=== PATIENT | male | born 1975 | race African-American/Black ===

== ENCOUNTER 2019-05-19 07:56 | Day surgery (SDC) | payer OTHER ==
[2019-05-19] MEDS ORDERED: ROCURONIUM 50 MG/5 ML VIAL IV ONE ×2 (08:00→09:52)
[2019-05-19] MEDS ORDERED: FENTANYL CITR 250 MCG/5 ML ONE ×2 (08:00→09:53)
[2019-05-19] MEDS ORDERED: MIDAZOLAM HCL 2 MG/2 ML INJ ONE (08:00)
[2019-05-19] MEDS ORDERED: LIDOCAINE 1% MPF 5 ML VIAL ONE (08:00)
[2019-05-19] MEDS ORDERED: PROPOFOL 200 MG/20 ML VIAL IV ONE (08:00)
--- OUTSIDE RECORDS SUMMARY | 2019-05-19 08:01 | XMS REPORT | Summary of Care ---
:06/17/1968 Author Organization [facility] Urology [facility] Address [address], [address] [place] [address] Encounter HQ Encntr_alias(FIN) [id number] Date(s): 12/20/18 - 12/20/18 [facility]rology [facility] [address] [place] [address]- [phone] Attending Physician: Sebastian Ruffin MD Referring Physician: Sebastian Ruffin MD Vital Signs No data available for this section Problem List Condition Effective Dates Status Health Status Informant Morbid obesity(Confirmed) Active Allergies, Adverse Reactions, Alerts Substance Reaction Severity Status NKDA Active Medications No data available for this section Results No data available for this section Immunizations No data available for this section Procedures No data available for this section Social History Social History Type Response Smoking Status Never smoker; Type: Cigarettes; Ready to change: No; Concerns about tobacco use in household: No; Exposure to Tobacco Smoke None; Cigarette Smoking Last 365 Days No; Reg Smoking Cessation Counseling No entered on: 10/29/18 Assessment and Plan No data available for this section
--- OUTSIDE RECORDS SUMMARY | 2019-05-19 08:01 | XMS REPORT | Clinical Summary ---
:06/17/1968 Author Organization [facility] Address [address] [place] [address] Care Team Providers Name Role Phone Landon Herr MD Primary Care Provider Allergies Not on File Medications No known medications Active Problems No known active problems Encounters Date Type Specialty Care Team Description 07/28/2018 Lab Lab Landon Herr Occupational exposure to [place] unspecified risk factor 07/28/2018 Employee Health Employee Health Occupational exposure to unspecified risk factor (Primary Dx) after 05/18/2018 Social History Tobacco Use Types Packs/Day Years Used Date Never Assessed Sex Assigned at Date Recorded Not on file Job Start Date Occupation Industry Not on file Not on file Not on file Travel History Travel Start Travel End No recent travel history available. Last Filed Vital Signs Not on file Plan of Treatment Health Maintenance Due Date Last Done Comments INFLUENZA VACCINE 04/14/2019 Procedures Procedure Name Priority Date/Time Associated Diagnosis Comments VARICELLA ZOSTER Routine 07/28/2018 9:43 Results for this VIRUS AB, IGG AM [employer] procedure are in the results section. HEPATITIS B SURFACE Routine 07/28/2018 9:43 Occupational exposure Results for this ANTIBODY [employer] to unspecified risk procedure are in factor the results section. RUBELLA AB IGG Routine 07/28/2018 9:43 Occupational exposure Results for this AM [employer] to unspecified risk procedure are in factor the results section. MUMPS VIRUS Routine 07/28/2018 9:43 Occupational exposure Results for this ANTIBODY, IGG AM [employer] to unspecified risk procedure are in factor the results section. MEASLES (RUBEOLA) Routine 07/28/2018 9:43 Occupational exposure Results for this ANTIBODY IGG AM [employer] to unspecified risk procedure are in factor the results section. after 05/18/2018 Results Measles (rubeola) antibody IgG (07/28/2018 9:43 AM [employer]) Measles (rubeola) NegativeComment: Negative [facility] Ab, IgG Negative: No IgG HOSPITAL antibodies to Measles (Rubeola) detected. Specimen Serum Performing Organization Address City/State/Zipcode Phone Number [facility] DEPARTMENT OF PATHOLOGY AND [address] [place] [phone] Rubella Ab IgG (07/28/2018 9:43 AM [employer]MS BU[employer]DER) Pathologist [facility] Rubella IgG Positive Negative [facility] antibody Comment: HOSPITAL IgG antibody levels are at a level that are considered to indicate positive immunity Specimen Serum Performing Organization Address City/[facility]/Zipcode Phone Number [facility] DEPARTMENT OF PATHOLOGY AND [address] [place] [address] Hepatitis B surface antibody (07/28/2018 9:43 AM FORMS BU[employer]DER) [facility] Hepatitis B surface Reactive (A) Non-reactive [facility] Specimen Blood Performing Organization Address City/[facility]/Zipcode Phone Number [facility] DEPARTMENT OF PATHOLOGY AND [address] [place] [phone] Varicella zoster virus Ab, IgG (07/28/2018 9:43 AM FORMS BUILDER) [facility] VZV IgG Positive (A)Comment: Negative [facility] Positive: Indicates HOSPITAL current or past infection. Specimen Serum Performing Organization Address City/[facility]/Zipcode Phone Number [facility] DEPARTMENT OF PATHOLOGY AND [address] [place] [phone] Mumps virus antibody, IgG (07/28/2018 9:43 AM FORMS BUILDER) [facility] Mumps Ab, IgG NegativeComment: Negative [facility] Negative: No IgG HOSPITAL antibodies to Mumps detected. Specimen Serum Performing Organization Address City/State/Zipcode Phone Number [facility] DEPARTMENT OF PATHOLOGY AND [address] [place] [phone] after 05/18/2018 Advance Directives For more information, please contact: [phone] Type Date Recorded Patient Emt/Dispatcher Explanation Advance Directives, Living Will and Medical Power of Correctional Treatment Specialist
--- OUTSIDE RECORDS SUMMARY | 2019-05-19 08:01 | XMS REPORT | Summary of Care ---
:06/17/1968 Author Organization [facility] Urology [facility] Address [address], [address] [place] [address] Encounter HQ Encntr_aliranjith(FIN) [id number] Date(s): 10/29/18 - 10/29/18 [facility] [address] [place] [address] [phone] Attending Physician: Sebastian Ruffin MD Referring Physician: [...]
--- OUTSIDE RECORDS SUMMARY | 2019-05-19 08:01 | XMS REPORT | Summary of Care ---
:06/17/1968 Author Organization [facility] Urology [facility] Address [address], [address] [place] [address] Encounter HQ Encntr_aliranjith(FIN) [id number] Date(s): 12/20/18 - 12/20/18 [facility] [address] [place] [address]- Attending Physician: Sebastian Ruffin MD Referring Physician: [...]
--- OUTSIDE RECORDS SUMMARY | 2019-05-19 08:01 | XMS REPORT | Encounter Summary ---
:06/17/1968 Author Reason for Visit Screening - TB; ppd test Instructions 1. Tuberculosis screening PPD (purified protein derivative), skin test - Patient was advised to follow-up with [facility] within 48-72 hours. Tubersol 5 tub. unit/0.1 mL intradermal injection solution Discussion Note: None recorded.Patient educational handouts: No information available. Plan of Care Patient Instructions The patient was advised that the tuberculin skin test must be read within 48-72 hours. If not, the skin test will be considered invalid and will have to be repeated Reminders Provider Appointments None recorded. Lab PPD 02/12/2016 [facility] (Purified Protein Derivative), Skin Test Referral None recorded. Procedures None recorded. Surgeries None recorded. Imaging None recorded. Medications Name Start Date Tubersol 5 tub. unit/0.1 mL intradermal injection solution Medications Administered Name Date Tubersol 5 tub. unit/0.1 mL intradermal injection solution [id number]:[id number]:11 Take 0 mL by intradermal route. Vitals Height Weight BMI 6 ft 268 lbs 36.3 Lab Results None recorded. Allergies Name Reaction Severity Onset NKDA Problems None recorded. Procedures None recorded. Vaccine List None recorded. Social History None recorded. Past Encounters 02/12/2016 Tuberculosis Screening [facility]: [address] [place] [address], Ph. History of Present Illness Screening Request - TB Reported By: Patient Screening Request: BCG No prior BCG vaccination. PPD No past history of postive TB skin test (PPD), No previous severe local reaction to TB skin test (PPD) Review of Systems Screening - TB Reported By: Patient Symptoms during past year > 2 weeks, NOT unexplained or low grade fever No fever. associated with specific illness?: night sweats No night sweats. unexplained weight loss > 5 lbs No unexplained weight loss. persistent cough No persistent cough. shortness of breath No shortness of breath. coughing up blood (hemoptysis) No coughing up blood (hemoptysis). unusual fatigue No unusual fatigue. loss of appetite No loss of appetite. swollen neck glands No swollen neck glands Physical Exam Screening General Appearance: General: well-developed, well-nourished, no acute distress
--- OUTSIDE RECORDS SUMMARY | 2019-05-19 08:01 | XMS REPORT | Continuity of Care Document ---
:06/17/1968 Author Organization [facility] Care Team Providers Name Role Phone [facility] Unavailable Unavailable Problems Problem Status Onset Classification Date Comments Source Date Reported T SPOT Active 07/29/20 [facility] 18 Tuberculosis 02/12/20 Diagnosis 02/12/2016 [facility] screening 16 Morbid obesity Active Problem 02/16/2019 [facility] Medications Medication Details Route Status Patient Ordering Order Source Instructions Provider Date Purified Tubersol 5 Active [facility] Protein tub. unit/0.1 Derivative of mL intradermal Tuberculin 50 injection UNT/ML solution Injectable Solution [Tubersol] Allergies, Adverse Reactions, Alerts Substance Category Reaction Severity Reaction Status Date Comments Source type Reported No Known Assertion Drug Medication allergy [facility] Allergies Immunizations No Data Provided for This Section Results No Data Provided for This Section Pathology Reports No Data Provided for This Section Diagnostic Reports Report Value Date Source Chest 1 View PA chest: The cardiomediastinal silhouette, pulmonary vasculature and guille are within normal limits. The lungs and pleural spaces are clear. There are no significant osseous abnormalities. 07/29/2018 [facility] Employee DX IMPRESSION: No acute radiographic abnormalities in the chest. [id number] Consultation Notes No Data Provided for This Section Discharge Summaries No Data Provided for This Section History and Physicals No Data Provided for This Section Vital Signs Vital Sign Value Date Comments Source Weight 120.71 10/29/2018 [facility] Systolic (mm Hg) 155 10/29/2018 [facility] Diastolic (mm Hg) 97 10/29/2018 [facility] Heart Rate 75 10/29/2018 [facility] Height 72 02/12/2016 [facility] Weight 268 02/12/2016 [facility] Encounters Location Location Encounter Encounter Reason Attending ADM DC Status Source Details Type Number For Provider Date Date Visit [place] - Nia [id number] Nia 02/11 [facility]: [id number] Henok /Jacky ic - [id number] [place] [address], Ph. [facility] [id number] Bianka 07/29 07/30 [place] Patient 9 Florian /2017 [facility] Outpatient [id number] [facility] 10/25 Active [facility] [place] [facility] Ambulatory [id number] Kan[facility] 10/25 10/25 Urology Pre-Reg [facility] Outpatient [id number] [facility] 10/29 [facility] [id number] PROCEDURE 10/29 Active [facility] 1 ROOM [place] [facility] Ambulatory [id number] Kanika [facility] 10/29 10/29 Urology Pre-Reg [facility] Outpatient [id number] [facility] 10/29 10/30 U[facility] Outpatient [id number] [facility] 12[facility]20 Active [facility] [place] Outpatient [id number] [facility] 12/20 [facility] [place] [facility] Ambulatory [id number] Kanika [facility] 12/20 12/20 Urology Pre-Reg [facility] Ambulatory [id number] Kan[facility] 12/20 12/20 Urology Pre-Reg [facility] Procedures No Data Provided for This Section Assessment and Plan No Data Provided for This Section Plan of Care No Data Provided for This Section Social History Social History Date Source Social History TypeResponse 10/29/2018 [facility] Smoking Status Never smoker; Type: Cigarettes; Ready to change: No; Concerns about tobacco use in household: No; Exposure to Tobacco Smoke None; Cigarette Smoking Last 365 Days No; Reg Smoking Cessation Counseling No entered on: 10/29/18 Social History TypeResponse 10/29/2018 [facility] Smoking Status Never smoker; Type: Cigarettes; Ready to change: No; Concerns about tobacco use in household: No; Exposure to Tobacco Smoke None; Cigarette Smoking Last 365 Days No; Reg Smoking Cessation Counseling No entered on: 10/29/18 Family History No Data Provided for This Section Advance Directives No Data Provided for This Section Functional Status No Data Provided for This Section
--- OUTSIDE RECORDS SUMMARY | 2019-05-19 08:01 | XMS REPORT | Summary of Care ---
:06/17/1968 Author Organization [facility] Address [address] [place], [place] [address]- Encounter HQ Encntr_alias(FIN) [id number] Date(s): 07/29/18 - 07/29/18 [facility] [address] [place] [address]- Discharge Disposition: Home or Self Care Attending Physician: Bianka Florian MD Vital Signs No data available for this section Problem List Condition Effective Dates Status Health Status Informant Morbid obesity(Confirmed) Active Allergies, Adverse Reactions, Alerts No Known Medication Allergies Medications No data available for this section [...]
--- OUTSIDE RECORDS SUMMARY | 2019-05-19 08:01 | XMS REPORT | Summary of Care ---
:06/17/1968 Author Organization [facility] Address [address] [place], [place] [address]- Encounter HQ Encntr_alias(FIN) [id number] Date(s): 07/29/18 - 10/27/18 [facility] [address] [place] [address]- Attending Physician: Bianka Florian MD Vital Signs [...]
--- OUTSIDE RECORDS SUMMARY | 2019-05-19 08:01 | XMS REPORT | Summary of Care ---
:06/17/1968 Author Organization [facility] Urology [facility] Address [address] [place] [address], [address] [place] [address] Encounter HQ Encntr_aliranjith(FIN) [id number] Date(s): 10/25/18 - 10/25/18 [facility] [address], [address] [place] [address] [phone] Attending Physician: Sebastian Ruffin MD Referring Physician: [...] Reg Smoking Cessation Counseling No entered on: 10/26/18 Assessment and Plan No data available for this section
--- OUTSIDE RECORDS SUMMARY | 2019-05-19 08:02 | XMS REPORT | Summary of Care ---
:06/17/1968 Author Organization [facility] Urology [facility] [place] Address [address] [place] [address] [employer], [address] [place] [address] Encounter HQ Heatherr_betty(FIN) [id number] Date(s): 10/29/18 - 10/29/18 [facility] [address], [address] [place] [address] [phone] Discharge Disposition: Home or Self Care Attending Physician: Sebastian Ruffin MD Referring Physician: Sebastian Ruffin MD Vital Signs Most recent to oldest [Reference Range]: 1 Blood Pressure [90-140/60-90 mmHg] 155/97 mmHg *HI* (10/29/18 3:46 PM) Peripheral Pulse Rate [60-100 bpm] 75 bpm (10/29/18 3:46 PM) Weight 120.71 kg (10/29/18 3:46 PM) Problem List Condition Effective Dates Status Health Status Informant Morbid obesity(Confirmed) Active Allergies, Adverse Reactions, Alerts Substance Reaction Severity Status NKDA Active Medications No Known Medications Results No data available for this section [...]
[2019-05-19] MEDS ORDERED: Ringers Lactate 1,000 ML IV ONE ×2 (08:16→11:53)
[2019-05-19] MEDS ORDERED: CEFAZOLIN/SWI 1gm 1 GM/10 ML SYR ONE (08:16)
[2019-05-19] MEDS ORDERED: SCOPOLAMINE HYDROBROMIDE PATCH TD ONE (08:16)
[2019-05-19 08:30] LABS: Absolute Lymphocytes (CBC) 1.7 K/uL (0.7-4.9); Basophils % 0.1 % (0-1.3); Hematocrit 40.6 % (39.6-49.0); Lymphocytes % 30.2 % (15.3-44.8); MPV 7.9 fL (7.6-11.3); RBC Red Blood Cell Count 4.38 M/uL (4.33-5.43)
[2019-05-19] MEDS ORDERED: CEFAZOLIN SODIUM 1 GM/VIAL ONE (08:39)
[2019-05-19] MEDS ORDERED: EPINEPHRINE/PF 1 MG/ML AMP ONE (08:39)
[2019-05-19] MEDS ORDERED: Mastisol Adhesive Liq ONE (08:40)
[2019-05-19] MEDS ORDERED: GENTAMICIN SULF 80 MG/2ML INJ ONE (08:40)
[2019-05-19] MEDS ORDERED: NS 0.9% VIAL 20 ML ONE (08:40)
[2019-05-19] MEDS ORDERED: NA CHLORIDE 0.9% 2,000 ML ONE (08:40)
[2019-05-19] MEDS ORDERED: BACITRACIN 50000 UNIT VIAL ONE (08:40)
[2019-05-19] MEDS ORDERED: ONDANSETRON 4 MG/2 ML VIAL ONE (11:20)
[2019-05-19] MEDS ORDERED: GLYCOPYRROLATE 0.2 MG/ML SYR ONE (11:20)
[2019-05-19] MEDS ORDERED: dexAMETHasone 10 MG/ML VIAL ONE (11:20)
[2019-05-19] MEDS ORDERED: KETOROLAC 30 MG/ML INJ ONE (11:20)
[2019-05-19] MEDS ORDERED: NEOSTIGMINE 1 MG/ML -10 ML VIAL ONE (11:20)
[2019-05-19] MEDS ORDERED: MEPERIDINE HCL 25 MG/0.5 ML ONE (11:55)
--- NOTE | 2019-05-19 23:29 | OP ---
Surgeon: Declan Duarte MD Solution Coordinator: Christian Preoperative Diagnosis: Gynecomastia and lipodystrophy of the flanks. Postoperative Diagnosis: Gynecomastia and lipodystrophy of the flanks. Procedure Performed: Resection and gynecomastia with liposuction of flanks. Anesthesia: General. Procedure In Detail: After satisfactory induction of general anesthesia and the patient has already been prepped circumferentially with DuraPrep, dry sterile drapes applied in the usual manner. Incisi on was made using 15 blade in the previous incision from the tummy tuck. Right and left flanks were infused. Right flank 515 and left flank 415. Then, aspiration was performed with 5-mm cannula, 800 out of right and left flank. Incision was made in the inferior fold of both breast and 500 cc of inf usion was performed in both breasts. Patient had an incision made in the inframammary fold and then dissection proceeded down in the subcutaneous tissue . Superficial dissection was performe d extending the full circumference of the breast. It was done on both sides and then the undersurfac e was cut superficial to the fascia leaving fat behind. This was done on both sides. . E lectrocautery was used for hemostasis. was done and wound was irrigated with triple antib iotic solution. Then, 10 MORRO was brought out the axilla and sewn in place with 2-0 silk and then the wounds were closed with tacking sutures for the nipples to the underlying fat was performed with 3-0 Vicryl subcu, 3-0 PDS running and locking subcuticular closure. A tincture of benzoin and Steri-Stri ps were applied on the breasts, fluffs, and Tee wrap was applied. The patient tolerated t he procedure well. The amount removed from the right breast was 216, left was 246 g. SHARON/DEEPTI Voice ID: [id number] Report ID: [id number]
== END 2019-05-19 15:35 | disposition home or self-care (01) ==
LOC: OR 07:56
PROVIDERS: ATTEND Specialist
PROC: 0HTV0ZZ Resection of Bilateral Breast, Open Approach (ICD-10-PCS; principal; 2019-05-19 09:00)
PROC: 0J083ZZ Alteration of Abdomen Subcutaneous Tissue and Fascia, Percutaneous Approach (ICD-10-PCS; 2019-05-19 09:00)
DX: N62 Hypertrophy of breast (principal); E88.1 Lipodystrophy, not elsewhere classified
CPT/HCPCS: 85025; 36415; 88305; 15877; 19300; J2704; J2710; J0171; J1580; J2250; J3010 ×2; J1100; J2175; J0690 ×2; J7030; J2405